=== PATIENT | female | born 1940 | race Two or more races ===

== ENCOUNTER 2018-02-05 11:45 | Inpatient (IN) | payer MEDICARE, MEDICAID | END 2018-02-11 14:40 | disposition home or self-care (01) | LOC: ER 11:45 → TELE 14:31 → TELE-CENTR 16:40 | PROC: 0DB68ZX Excision of Stomach, Via Natural or Artificial Opening Endoscopic, Diagnostic (ICD-10-PCS; principal; 2018-02-10 09:08) | DX: N39.0 Urinary tract infection, site not specified (principal); I24.9 Acute ischemic heart disease, unspecified; D68.9 Coagulation defect, unspecified; E44.1 Mild protein-calorie malnutrition; I25.10 Atherosclerotic heart disease of native coronary artery without angina pectoris; E83.51 Hypocalcemia; I25.2 Old myocardial infarction; E78.5 Hyperlipidemia, unspecified; G47.33 Obstructive sleep apnea (adult) (pediatric); E66.9 Obesity, unspecified; R13.10 Dysphagia, unspecified; I10 Essential (primary) hypertension; Z68.33 Body mass index [BMI] 33.0-33.9, adult ==

== ENCOUNTER 2018-03-08 17:38 | Emergency (ER) | payer MEDICARE, MEDICAID ==
[~2018-03-08] VITALS: Ht 147.3 cm; Wt 63.5 kg
[2018-03-08 17:52] VITALS: BP 124/76
== END 2018-03-08 23:48 | disposition home or self-care (01) ==
LOC: ER 17:44
DX: M77.52 Other enthesopathy of left foot and ankle (principal); Z90.710 Acquired absence of both cervix and uterus
CPT/HCPCS: 73630